=== PATIENT | female | born 1990 | race Two or more races ===

== ENCOUNTER 2023-07-20 04:22 | Emergency (ER) | payer BC, OTHER ==
[~2023-07-20] VITALS: Ht 157.5 cm; Wt 72.7 kg
[2023-07-20 07:39] LABS: Urine Bacteria FEW /hpf (None Seen); Urine Blood Negative /uL (Negative); Urine Clarity Clear (Clear); Urine Color Yellow (Yellow); Urine Protein, UAD TRACE (Negative); Urine Specific Gravity 1.019 (1.001-1.035); Urine Urobilinogen Normal (Negative); Urine WBC 2 /hpf (0 - 5); Urine pH 5.5 (5.0-9.0)
[2023-07-20 07:40] VITALS: BP 125/72; PULSE 80; RESP 18; TEMP 98.1; O2SAT 99
[2023-07-20 08:03] LABS: COVID19 ANTIGEN SOFIA FIA NEGATIVE (NEGATIVE)
[2023-07-20 08:04] LABS: Rapid Influenza A Negative (Negative); Rapid Influenza B Negative (Negative)
[2023-07-20 08:16] LABS: Rapid Strep A Screen-Throat Negative
[2023-07-20] MEDS ORDERED: ACET-1881 PO (08:29)
== END 2023-07-20 08:34 | disposition home or self-care (01) ==
LOC: ER 04:22
DX: O26.891 Other specified pregnancy related conditions, first trimester (principal); B34.9 Viral infection, unspecified; Z3A.10 10 weeks gestation of pregnancy; Z20.822 Contact with and (suspected) exposure to COVID-19
CPT/HCPCS: 36415; 81001; 87070; 87426; 87804; 87880

== ENCOUNTER 2023-12-31 08:05 | Observation (INO) | payer BC ==
[~2023-12-31 08:05] MED LIST: ACET-1881 PO
== END 2023-12-31 09:56 | disposition home or self-care (01) ==
LOC: LDRP 08:05 → UNDOADMOB 08:05 → EDUNIT# 08:45 → LDRP 08:45 → UNDODISOB 09:56
PROVIDERS: ADMIT Obstetrics & Gynecology; ATTEND Obstetrics & Gynecology
DX: O60.03 Preterm labor without delivery, third trimester (principal); O24.419 Gestational diabetes mellitus in pregnancy, unspecified control; Z3A.38 38 weeks gestation of pregnancy
CPT/HCPCS: 59025; 76818; 81002; 82948; 94760; G0378

== ENCOUNTER 2024-01-04 08:17 | Observation (INO) | payer BC ==
--- NOTE | 2024-01-04 08:59 | DVH ---
BIOPHYSICAL PROFILE HISTORY: GDMA2 TECHNIQUE: Multiple transabdominal real-time grayscale sonographic images through the gravid uterus of the fetus with duplex Doppler color flow and M-mode spectral analysis FINDINGS: BIOPHYSICAL PROFILE: breathing score: 2 movement score: 2 tone score: 2 Quantitative MAKAYLA score: 2 (MAKAYLA: 20 Cm.) Total score: 8 The cervix not well visualized. Single live fetus in vertex presentation. heart rate 142 beats per minute. Fundal placenta without previa or abruption IMPRESSION: Biophysical profile score: 8
[2024-01-04] MEDS ORDERED: METF-370 PO (09:05)
[2024-01-04] MEDS ORDERED: NIFE10CA52 PO (09:05)
--- NOTE | 2024-01-04 19:50 | DVHDS2 ---
Physician Discharge Progress N Final Diagnosis: testing for PTL/GDM, A2 Operations or Procedures: Operations or Procedures 33yo IUP@34.3wks, +FM, denies UCs/VB VSS UA wnl NST reactive BPP wnl FKC/PTL precautions reviewed Condition on Discharge: Stable Disposition: Home Discharge Instructions: Diet: Consistent carbohydrate Activity: See Comment Activity comment: pelvic rest Medications: see med list Follow Up Care: Specialist: f/u in 3 days Discharge Statement: "Patient was advised to return to the ER or call 911 if any headaches, dizziness, shortness of breath, chest pain, abdominal pain, bleeding, fevers, or worsening of medical condition. Patient was counseled about treatment plan, medications, possible side effects, patientverbalized understanding. All questions were answered to the best of my ability. This discharge took greater then 30 minutes in planning, reviewing documentation, counseling the patient, and discussing with other team members." AGUS RASCON Jan 04, 2024 19:50
== END 2024-01-04 09:32 | disposition home or self-care (01) ==
LOC: EDUNIT# → LDRP 08:17
PROVIDERS: ADMIT Obstetrics & Gynecology; ATTEND Obstetrics & Gynecology
DX: O60.03 Preterm labor without delivery, third trimester (principal); O24.419 Gestational diabetes mellitus in pregnancy, unspecified control; Z3A.34 34 weeks gestation of pregnancy; Z79.899 Other long term (current) drug therapy; Z98.890 Other specified postprocedural states
CPT/HCPCS: 59025; 76818; 81002; 82948; 82962; 94760; G0378

== ENCOUNTER 2024-01-07 08:07 | Observation (INO) | payer BC ==
[~2024-01-07 08:07] MED LIST changes: +METF-370 PO; +NIFE10CA52 PO
--- NOTE | 2024-01-07 09:10 | DVH ---
CLINICAL HISTORY: GDMA2 COMPARISON: US BIOPHYSICAL PROFILE on DOS: 12/31/23, US BIOPHYSICAL PROFILE on DOS: 12/28/23, US BIOPH YSICAL PROFILE on DOS: 12/24/23 TECHNIQUE: biophysical profile was performed. Transabdominal sonographic images of the fetus we re obtained. FINDINGS: The fetus is in cephalic position. heart rate measures 136 BPM. Amniotic fluid index measures 16.2 cm. The placenta is posterior / fundal in position. BPP profile is an overall score of 8/8, with 2/2 points for breathing, with at least one episode of breathing over a 30 second duration during a 30 minute observation, 2/2 points for m ovements, with 3 or more discrete body or limb movements, 2/2 points for tone, with one or more episodes of extremity extension with return to flexion, or opening and closing of hand, and 2/ 2 points for amniotic fluid, with at least 1 pocket of amniotic fluid that measures 2 cm in 2 perpend icular planes. IMPRESSION: BPP score of 8/8.
--- NOTE | 2024-01-07 16:46 | DVHDS2 ---
Physician Discharge Progress N Final Diagnosis: GDMA2 Operations or Procedures: Operations or Procedures NST/BPP/ MAKAYLA Accuchbridget Commentary: Commentary status reassuring Condition on Discharge: Stable Disposition: Home Discharge Instructions: Diet: Consistent carbohydrate Activity: No Restrictions, As Tolerated Follow Up/Referral: follow up twice weekly as scheduled for NST/BPP's and keep all scheduled appt's with OBGYN Medications: Continue all prescription medications exactly as prescribed. Follow Up Care: Discharge Statement: "Patient was advised to return to the ER or call 911 if any headaches, dizziness, shortness of breath, chest pain, abdominal pain, bleeding, fevers, or worsening of medical condition. Patient was counseled about treatment plan, medications, possible side effects, patientverbalized understanding. All questions were answered to the best of my ability. This discharge took greater then 30 minutes in planning, reviewing documentation, counseling the patient, and discussing with other team members." KARINA NICK DO Jan 07, 2024 16:46
== END 2024-01-07 09:50 | disposition home or self-care (01) ==
LOC: LDRP 08:07 → UNDOADMOB 08:07 → EDUNIT# 08:24 → LDRP 08:24 → UNDODISOB 09:50
PROVIDERS: ADMIT Obstetrics & Gynecology; ATTEND Obstetrics & Gynecology
DX: O24.419 Gestational diabetes mellitus in pregnancy, unspecified control (principal); Z3A.34 34 weeks gestation of pregnancy
CPT/HCPCS: 59025; 76818; 81002; 82948; 82962; G0378

== ENCOUNTER 2024-01-07 12:21 | Observation (INO) | payer BC ==
[2024-01-11] MEDS ORDERED: PREN1TAB71 OR (11:40)
--- NOTE | 2024-01-11 11:49 | DVH ---
BIOPHYSICAL PROFILE HISTORY: GDMA2 TECHNIQUE: Multiple transabdominal real-time grayscale sonographic images through the gravid uterus of the fetus with duplex Doppler color flow and M-mode spectral analysis FINDINGS: BIOPHYSICAL PROFILE: breathing score: 2 movement score: 2 tone score: 2 Quantitative MAKAYLA score: 2 (MAKAYLA: 17.9 Cm.) Total score: 8/8 Single live fetus in cephalic presentation. heart rate 140 beats per minute. Posterior placenta without previa or abruption IMPRESSION: 1. Biophysical profile score: 8/8 HS:Y
--- NOTE | 2024-01-11 20:38 | DVHDS2 ---
Physician Discharge Progress N Final Diagnosis: testing for PTL/GDM, A2 Operations or Procedures: Operations or Procedures 33yo IUP@35.3wks, taking metformin and procardia VSS UA wnl NST reactive (verified by 2 RNs) BPP WNL FKC/PTL precautions reviewed. Instructed to stop procardia at 36 wks Condition on Discharge: Stable Disposition: Home Discharge Instructions: Diet: Consistent carbohydrate Activity: No Restrictions, As Tolerated Medications: see med list Follow Up Care: Specialist: f/u in 3 days Discharge Statement: "Patient was advised to return to the ER or call 911 if any headaches, dizziness, shortness of breath, chest pain, abdominal pain, bleeding, fevers, or worsening of medical condition. Patient was counseled about treatment plan, medications, possible side effects, patientverbalized understanding. All questions were answered to the best of my ability. This discharge took greater then 30 minutes in planning, reviewing documentation, counseling the patient, and discussing with other team members." AGUS RASCON CNM Jan 11, 2024 20:38
== END 2024-01-11 12:45 | disposition home or self-care (01) ==
LOC: LDRP 01-11 11:02 → UNDOADMOB 01-11 11:02 → LDRP 01-11 11:12
PROVIDERS: ADMIT Obstetrics & Gynecology; ATTEND Obstetrics & Gynecology
DX: O24.419 Gestational diabetes mellitus in pregnancy, unspecified control (principal); Z3A.36 36 weeks gestation of pregnancy
CPT/HCPCS: 76818; G0378; 59025; 81002

== ENCOUNTER 2024-01-14 08:05 | Observation (INO) | payer BC ==
[~2024-01-14 08:05] MED LIST changes: +PREN1TAB71 OR
--- NOTE | 2024-01-14 09:05 | DVH ---
BIOPHYSICAL PROFILE HISTORY: GDMA2 TECHNIQUE: Multiple transabdominal real-time grayscale sonographic images through the gravid uterus of the fetus with duplex Doppler color flow and M-mode spectral analysis FINDINGS: BIOPHYSICAL PROFILE: breathing score: 2 movement score: 2 tone score: 2 Quantitative MAKAYLA score: 2 (MAKAYLA: 16.5 Cm.) Total score: 8 The cervix not well visualized. Single live fetus in cephalic presentation. heart rate 139 beats per minute. Posterior/fundal placenta without previa or abruption IMPRESSION: Biophysical profile score: 8
--- NOTE | 2024-01-14 17:51 | DVHDS2 ---
Physician Discharge Progress N Final Diagnosis: GDMA2 Operations or Procedures: Operations or Procedures NST/BPP/MAKAYLA Accucheck All WNL Condition on Discharge: Stable Disposition: Home Discharge Instructions: Diet: Consistent carbohydrate Activity: No Restrictions, As Tolerated Follow Up/Referral: as scheduled Medications: N/A Follow Up Care: Discharge Statement: "Patient was advised to return to the ER or call 911 if any headaches, dizziness, shortness of breath, chest pain, abdominal pain, bleeding, fevers, or worsening of medical condition. Patient was counseled about treatment plan, medications, possible side effects, patientverbalized understanding. All questions were answered to the best of my ability. This discharge took greater then 30 minutes in planning, reviewing documentation, counseling the patient, and discussing with other team members." KARINA NICK DO Jan 14, 2024 17:51
== END 2024-01-14 09:25 | disposition home or self-care (01) ==
LOC: LDRP 08:05
PROVIDERS: ADMIT Obstetrics & Gynecology; ATTEND Obstetrics & Gynecology
DX: O24.419 Gestational diabetes mellitus in pregnancy, unspecified control (principal); Z3A.35 35 weeks gestation of pregnancy; Z79.899 Other long term (current) drug therapy
CPT/HCPCS: 59025; 76818; 81002; 82948; 82962; 94760; G0378

== ENCOUNTER 2024-01-18 08:02 | Observation (INO) | payer BC ==
--- NOTE | 2024-01-18 08:50 | DVH ---
Procedure: US BIOPHYSICAL PROFILE 01/18/2024 08:34 AM Indication: GDMA1 Comparison: US BIOPHYSICAL PROFILE on DOS: 01/14/24, US BIOPHYSICAL PROFILE on DOS: 01/11/24, US BIOP HYSICAL PROFILE on DOS: 01/04/24 Technique: Sonogram of gravid uterus utilizing grayscale and color techniques. FINDINGS: Single living intrauterine gestation. Presentation: Cephalic Placenta: Posterior, no evidence of previa or abruption heart rate: 146 bpm MAKAYLA: 17.4 cm, DVP: 6.7 cm Maternal cervix: Not visualized Biophysical Profile: breathing score: 2 movement score: 2 tone: 2 Quantitative MAKAYLA score: 2 Total score: 8/8 IMPRESSION: 1. Single living as above. 2. Biophysical profile score: 8/8.
--- NOTE | 2024-01-18 09:43 | DVHDS2 ---
Physician Discharge Progress N Final Diagnosis: testing for GDM, A1 Operations or Procedures: Operations or Procedures 33yo IUP@36.3wks VSS UA wnl NST reactive (FHR baseline 150, moderate variability, +accels, -decels) BPP wnl FKC/PTL/labor precautions reviewed Condition on Discharge: Stable Disposition: Home Discharge Instructions: Diet: Consistent carbohydrate Activity: No Restrictions, As Tolerated Medications: see med list Follow Up Care: Specialist: f/u in 1 wk Discharge Statement: "Patient was advised to return to the ER or call 911 if any headaches, dizziness, shortness of breath, chest pain, abdominal pain, bleeding, fevers, or worsening of medical condition. Patient was counseled about treatment plan, medications, possible side effects, patientverbalized understanding. All questions were answered to the best of my ability. This discharge took greater then 30 minutes in planning, reviewing documentation, counseling the patient, and discussing with other team members." AGUS RASCON CNM Jan 18, 2024 09:43
== END 2024-01-18 09:40 | disposition home or self-care (01) ==
LOC: LDRP 08:02
PROVIDERS: ADMIT Obstetrics & Gynecology; ATTEND Obstetrics & Gynecology
DX: O24.419 Gestational diabetes mellitus in pregnancy, unspecified control (principal); Z3A.36 36 weeks gestation of pregnancy; Z79.899 Other long term (current) drug therapy; Z98.890 Other specified postprocedural states
CPT/HCPCS: 59025; 76818; 81002; 82948; 82962; 94760; G0378

== ENCOUNTER 2024-01-25 10:24 | Observation (INO) | payer BC ==
--- NOTE | 2024-01-25 11:32 | DVH ---
CLINICAL HISTORY: Gestational diabetes. COMPARISON: US BIOPHYSICAL PROFILE on DOS: 01/18/24, US BIOPHYSICAL PROFILE on DOS: 01/14/24, US BIOP HYSICAL PROFILE on DOS: 01/11/24 TECHNIQUE: biophysical profile was performed. Transabdominal sonographic images of the fetus we re obtained. FINDINGS: The fetus is in cephalic position. heart rate measures 138 BPM. Amniotic fluid index measures 13.6 cm. The placenta is posterior in position. BPP profile is an overall score of 8/8, with 2/2 points for breathing, with at least one episode of breathing over a 30 second duration during a 30 minute observation, 2/2 points for m ovements, with 3 or more discrete body or limb movements, 2/2 points for tone, with one or more episodes of extremity extension with return to flexion, or opening and closing of hand, and 2/ 2 points for amniotic fluid, with at least 1 pocket of amniotic fluid that measures 2 cm in 2 perpend icular planes. IMPRESSION: BPP score of 8/8.
--- NOTE | 2024-01-25 21:48 | DVHDS2 ---
Physician Discharge Progress N Final Diagnosis: testing for GDM, A1 Operations or Procedures: Operations or Procedures 33yo IUP@37.3wks VSS UA wnl NST reactive (FHR 130, moderate variability, +accels, -decels) BPP wnl FKC/Labor precautions reviewed. Condition on Discharge: Stable Disposition: Home Discharge Instructions: Diet: Consistent carbohydrate Activity: No Restrictions, As Tolerated Medications: see med list Follow Up Care: Specialist: f/u in 1 wk Discharge Statement: "Patient was advised to return to the ER or call 911 if any headaches, dizziness, shortness of breath, chest pain, abdominal pain, bleeding, fevers, or worsening of medical condition. Patient was counseled about treatment plan, medications, possible side effects, patientverbalized understanding. All questions were answered to the best of my ability. This discharge took greater then 30 minutes in planning, reviewing documentation, counseling the patient, and discussing with other team members." AGUS RASCON CNM Jan 25, 2024 21:48
== END 2024-01-25 12:00 | disposition home or self-care (01) ==
LOC: LDRP 10:24 → UNDOADMOB 10:24 → LDRP 10:34 → UNDODISOB 12:00
PROVIDERS: ADMIT Obstetrics & Gynecology; ATTEND Obstetrics & Gynecology
DX: O24.419 Gestational diabetes mellitus in pregnancy, unspecified control (principal); O26.893 Other specified pregnancy related conditions, third trimester; N89.8 Other specified noninflammatory disorders of vagina; Z3A.37 37 weeks gestation of pregnancy; Z91.040 Latex allergy status; Z79.899 Other long term (current) drug therapy
CPT/HCPCS: 59025; 76818; 81002; 82948; 82962; G0378

== ENCOUNTER 2024-02-02 09:03 | Observation (INO) | payer BC ==
--- NOTE | 2024-02-02 09:47 | DVH ---
Procedure: US BIOPHYSICAL PROFILE 02/02/2024 09:28 AM Indication: GDMA1 Comparison: US BIOPHYSICAL PROFILE on DOS: 01/25/24, US BIOPHYSICAL PROFILE on DOS: 01/18/24, US BIOP HYSICAL PROFILE on DOS: 01/14/24 Technique: Sonogram of gravid uterus utilizing grayscale and color techniques. FINDINGS: Single living intrauterine gestation. Presentation: Cephalic Placenta: Posterior heart rate: 140 bpm MAKAYLA: 16.6 cm, DVP: 5.4 cm Maternal cervix: Not visualized Biophysical Profile: breathing score: 2 movement score: 2 tone: 2 Quantitative MAKAYLA score: 2 Total score: 8/8 IMPRESSION: 1. Single living as above. 2. Biophysical profile score: 8/8.
[2024-02-02 11:01] LABS: Basophils # (auto) 0 10 ^3/uL (0-0.2); Basophils % (auto) 0.4 % (0.0-2.0); Eosinophils # (auto) 0 10 ^3/uL (0-0.8); Eosinophils % (auto) 0.4 % (0.0-7.0); Hematocrit 37.7 % (36.0-46.0); Hemoglobin 12.5 g/dL (12.2-16.2); Lymphocytes # (auto) 1.2 10 ^3/uL (0.4-5.4); Lymphocytes % (auto) 24.2 % (10.0-50.0); Mean Corpuscular Hemoglobin 28.9 pg (28.0-32.0); Mean Corpuscular Hgb Conc. 33.2 g/dL (32.0-36.0); Mean Corpuscular Volume 87.2 fL (80.0-100.0); Monocytes # (auto) 0.4 10 ^3/uL (0-1.3); Neutrophils # (auto) 3.3 10 ^3/uL (1.6-8.6); Platelet Count (auto) 112 10^3/uL (140-450); Red Blood Cells 4.32 10^6/uL (4.0-5.20); Red Cell Distribution Width 15.7 % (11.8-14.3); White Blood Cell 4.9 10^3/uL (4.4-10.8)
[2024-02-02 11:06] LABS: Urine Bacteria FEW /hpf (None Seen); Urine Blood Negative /uL (Negative); Urine Clarity Turbid (Clear); Urine Color Yellow (Yellow); Urine Mucus FEW (None Seen); Urine Protein, UAD 1+ (Negative); Urine Specific Gravity 1.022 (1.001-1.035); Urine Urobilinogen 2 mg/dL (Negative); Urine WBC 3 /hpf (0 - 5)
[2024-02-02 11:17] LABS: INR 0.96 (0.9-1.15); Partial Thromboplastin Time 26.3 SEC (24.5-34.5); Prothrombin Time 10.2 sec (9.3-11.8)
[2024-02-02 11:39] LABS: Protein, Urine 53.9 mg/dL (1-14)
[2024-02-02 11:42] LABS: Creatinine, Urine 157.18 mg/dL (30.0-125.0); Urine Protein/Creatinine Ratio 0.34
[2024-02-02 11:45] LABS: Alanine Aminotransferase 24 U/L (7-40); Albumin 3.8 g/dL (3.2-4.8); Anion Gap 7 (5-15); Aspartate Aminotransferase 20 U/L (13-40); BUN/Creatinine Ratio 6.8 (10.0-20.0); Bilirubin, Total 0.4 mg/dL (0.2-1.0); Calcium 9.8 mg/dL (8.7-10.4); Carbon Dioxide 24 mmol/L (20-31); Chloride 105 mmol/L (98-107); Glucose 89 mg/dL (74-106); Potassium 4.4 mmol/L (3.5-5.1); Sodium 136 mmol/L (136-145); Total Protein 6.3 g/dL (5.7-8.2)
[2024-02-02 11:47] LABS: Alkaline Phosphatase 200 U/L (46-116); Blood Urea Nitrogen 7 mg/dL (9-23)
[2024-02-02 11:55] LABS: Uric Acid 4.8 mg/dL (3.1-7.8)
--- NOTE | 2024-02-02 12:31 | DVHDS2 ---
Physician Discharge Progress N Final Diagnosis: pih,gdm Operations or Procedures: Operations or Procedures nst,sono Condition on Discharge: Good Disposition: Home Discharge Instructions: Diet: Consistent carbohydrate Activity: No Restrictions, As Tolerated Medications: na Follow Up Care: Specialist: fu on wednesday in 2 days Discharge Statement: "Patient was advised to return to the ER or call 911 if any headaches, dizziness, shortness of breath, chest pain, abdominal pain, bleeding, fevers, or worsening of medical condition. Patient was counseled about treatment plan, medications, possible side effects, patientverbalized understanding. All questions were answered to the best of my ability. This discharge took greater then 30 minutes in planning, reviewing documentation, counseling the patient, and discussing with other team members." SOILA OBRIEN DO Feb 02, 2024 12:31
[2024-02-04] MEDS ORDERED: HYDR-4072 PO (16:06)
[2024-02-04] MEDS ORDERED: IBUP-1456 PO (16:06)
[2024-02-04] MEDS ORDERED: DOCU-94 PO (16:06)
== END 2024-02-02 12:58 | disposition home or self-care (01) ==
LOC: UNDOADMOB 09:03 → LDRP 09:03 → UNDODISOB 12:58
PROVIDERS: ADMIT Obstetrics & Gynecology; ATTEND Obstetrics & Gynecology
DX: O13.9 Gestational [pregnancy-induced] hypertension without significant proteinuria, unspecified trimester (principal); O24.419 Gestational diabetes mellitus in pregnancy, unspecified control; Z79.899 Other long term (current) drug therapy; Z98.890 Other specified postprocedural states; Z3A.38 38 weeks gestation of pregnancy
CPT/HCPCS: 36415; 59025; 76818; 80053; 81001; 81002; 82570; 82948; 82962; 84156; 84550; 85025; 85610; 85730; 94760; G0378